=== PATIENT | male | born 1970 | race Caucasian/White ===

== ENCOUNTER → 2024-11-15 | Outpatient (CLI) | payer BC, SELFPAY ==
[2024-11-15 08:14] LABS: Collection Type, Urine Clean Catch; Squamous Epithelial Cell,Urine 0 /hpf (0-5)
[2024-11-15 08:54] LABS: Basophils # (Auto) 0.1 Thou/mm3 (0.0-0.2); Basophils % (Auto) 1 % (0-2.5); Eosinophils # (Auto) 0.3 Thou/mm3 (0.0-0.5); Eosinophils % (Auto) 4 % (0-10); Hematocrit 41.6 % (41.0-53.0); Hemoglobin 14.4 g/dL (13.5-16.0); Immature Granulocytes % (Auto) 0 % (0-0); Immature Granulocytes Auto 0.01 Thou/mm3 (0.00-0.00); Lymphocytes # (Auto) 2.2 Thou/mm3 (1.0-4.8); Lymphocytes % (Auto) 33 % (10-50); Mean Corpuscular HGB Conc 34.6 g/dl (31.0-37.0); Mean Corpuscular Hemoglobin 31.3 pg (25.0-35.0); Mean Corpuscular Volume 90 fL (80-100); Monocytes # (Auto) 0.6 Thou/mm3 (0.0-0.8); Monocytes % (Auto) 9 % (0-12); Neutrophils # (Auto) 3.4 Thou/mm3 (1.8-7.7); Neutrophils % (Auto) 52 % (37-80); Nucleated Red Blood Cell % 0 /100 WBC (0); Platelet Count 219 Thou/mm3 (140-440); RDW Standard Deviation 40.9 fL (35.1-43.9); White Blood Count 6.6 Thou/mm3 (3.8-10.6)
[2024-11-15 08:58] LABS: Glucose Estimated Average 111 mg/dL (80-131); Hemoglobin A1C 5.5 % Hgb (4.8-6.0)
[2024-11-15 09:03] LABS: Bilirubin,Urine Negative (Negative); Blood,Urine Trace (Negative); Clarity,Urine Clear (Clear/Hazy); Color,Urine Lt-Yellow (Lt Yel-Yel); Glucose, Urine Negative (Negative); Ketones,Urine Negative (Negative); Leukocyte Esterase,Urine Negative (Negative); Nitrite,Urine Negative (Negative); PH,Urine 6.5 (5.0-7.0); Protein,Urine Negative (Neg - Trace); RBC,Urine 1 /hpf (0-3); Specific Gravity,Urine 1.014 (1.001-1.035); Urobilinogen,Urine Negative mg/dL (0.0-1.0); WBC,Urine < 1 /hpf (0-5)
[2024-11-15 09:17] LABS: Alanine Aminotransferase 25 U/L (10-49); Albumin, Serum 4.7 gm/dL (3.5-5.0); Albumin/Globulin Ratio 2.1 (1.2-2.2); Alkaline Phosphatase 46 U/L (46-116); Anion Gap 7 (7-16); Aspartate Amino Transferase 30 U/L (0-34); BUN/Creatinine Ratio 11 Ratio (12-20); Bilirubin,Total 0.5 mg/dL (0.3-1.2); Blood Urea Nitrogen 10 mg/dL (9-23); Calcium 9.5 mg/dL (8.3-10.6); Calcium (Corrected) 9.5 mg/dL (8.5-10.1); Carbon Dioxide 29.2 mMol/L (20.0-31.0); Cardiac Risk Estimate 3.6 RATIO (4.0-6.7); Chloride 105 mMol/L (98-107); Cholesterol 136 mg/dL (132-200); Creatinine (Component) 0.9 mg/dL (0.6-1.3); Free T4 (Free Thyroxine) 1.04 ng/dL (0.89-1.76); Globulin 2.2 gm/dL (2.3-3.5); Glucose 99 mg/dL (74-106); HDL Cholesterol 38 mg/dL (40-60); LDL Cholesterol,Calculated 76 mg/dL (0-130); Osmolality,Calculated 280 (275-295); Potassium 4.5 mMol/L (3.4-5.1); Sodium 141 mMol/L (136-145); Total Protein 6.9 gm/dL (5.7-8.2); Triglycerides 109 mg/dL (30-150); Uric Acid 3.9 mg/dL (3.7-9.2); eGFR > 60 See Note
== END | disposition home or self-care (01) ==
LOC: COPL 07:19
PROVIDERS: PCP Family Medicine; Referring Provider Family Medicine; Visit Provider Family Medicine
DX: Z00.00 Encounter for general adult medical examination without abnormal findings (principal); I25.10 Atherosclerotic heart disease of native coronary artery without angina pectoris; E78.2 Mixed hyperlipidemia; I10 Essential (primary) hypertension; M10.00 Idiopathic gout, unspecified site
CPT/HCPCS: 36415; 80053; 80061; 81001; 83036; 84439; 84443; 84550; 85025

== ENCOUNTER 2024-11-23 15:14 | Emergency (ER) | payer BC, SELFPAY ==
[2024-11-23] VITALS (12 sets, daily range): BP systolic 117–179; BP diastolic 75–101; PULSE 64–83; RESP 12–25; TEMP 36.4–37; O2SAT 72–99; BMI 29.5
--- NOTE | 2024-11-23 15:28 | XR_ITS ---
Examination: Forearm, right, 2 views. Technique: Forearm, AP, lateral 2 views Date and time of exam: November 23, 2024 1649 hours INDICATIONS: Patient fell today with injury to the forearm, forearm pain. FINDINGS: Acute impacted comminuted fracture distal radial metaphysis, almost one shaft width dorsal displacement of the distal articulating surface of the radius The ulnar styloid tip also appears fractured No foreign body IMPRESSION: Acute comminuted displaced fracture distal radial metaphysis
--- NOTE | 2024-11-23 15:28 | XR_ITS ---
Examination: Wrist, right 3 views Technique: Wrist AP, oblique, lateral 3 views Date and time of exam: November 23, 2024 1641 hours INDICATION: Patient fell today with injury to the wrist, wrist pain FINDINGS: Acute comminuted fractured distal radial metaphysis Almost one shaft width dorsal displacement of the distal articulating fracture fragment of the radius Fracture ulnar styloid tip Carpal bones appear intact IMPRESSION: Acute comminuted displaced fracture distal radial metaphysis
--- NOTE | 2024-11-23 16:08 | PD.EDUPEX ---
Upper Extremity Injury RME/HPI General Chief Complaint: Extremity Injury, Upper Stated Complaint: DEFORMITY RIGHT ARM Time Seen by Provider: 11/23/24 15:33 Arrival date/time: 11/23/24 15:14 53-year-old male presents to the ED with a complaint of severe right wrist pain and deformity secondary to a ground-level fall. Patient states he was at home washing his dogs, the concrete was wet and slippery causing him to fall with his right hand behind him. He has some tingling to his fingertips however no overt numbness. Related Data Home Medications ?Medication ?Instructions ?Recorded ?Confirmed allopurinol 300 mg tablet 300 mg PO QDAY 09/26/19 11/26/24 tamsulosin 0.4 mg capsule 0.4 mg PO HS 11/30/20 11/26/24 aspirin 81 mg tablet,delayed 1 tab PO QDAY 12/29/21 11/26/24 release clopidogrel 75 mg tablet 75 mg PO QDAY 12/29/21 11/26/24 metoprolol succinate 25 mg 25 mg PO QPM 12/29/21 11/26/24 tablet,extended release 24 hr omeprazole 40 mg capsule,delayed 40 mg PO DAILY 04/14/22 11/26/24 release rosuvastatin 40 mg tablet 40 mg PO DAILY 08/26/23 11/26/24 tizanidine 4 mg tablet 4 mg PO 1XD 08/26/23 11/26/24 pregabalin 100 mg capsule (Lyrica) 100 mg PO BID 11/26/24 11/26/24 venlafaxine 150 mg 150 mg PO DAILY 11/26/24 11/26/24 capsule,extended release 24 hr Allergies Allergy/AdvReac Type Severity Reaction Status Date / Time No Known Allergies Allergy Verified 11/26/24 14:22 Review of Systems Review of Systems Systems Reviewed: All systems reviewed, normal except as documented Past Medical History Past Medical History NEUROLOGIC: Positive Brain Tumor; Negative Neurological Disorders or Seizures CARDIAC: Positive Cardiac Disorders, Myocardial Infarction, Cardiac Arrhythmia, Angina, Coronary Artery Disease, Atherosclerotic Heart Disease, Peripheral Vascular Disease, Hypercholesterolemia and Congestive Heart Failure; Negative Hypertension RESPIRATORY: Negative Chronic Obstructive Pulmonary Disease (COPD) or Asthma GASTROINTESTINAL: Positive Gastrointestinal Disorders, Gastrointestinal Bleed, Colitis and Gastroesophageal Reflux Disease; Negative Hepatitis GENITOURINARY: Positive Genitourinary Disorders and Benign Prostatic Hyperplasia; Negative Renal Disease MUSCULOSKELETAL: Positive Musculoskeletal Disorders and Arthritis; Negative Gout or Fibromyalgia ENDOCRINE: Positive Endocrine Disorders and Pituitary Disease; Negative Diabetes Mellitus Type 1 or Diabetes Mellitus Type 2 HEMATOLOGIC: Negative Blood Disorders or Sickle Cell Disease PSYCHO/SOCIAL: Positive Recreational Drug Use, Depression and Anxiety OTHER HISTORY: Positive Hospitalization, Falls, Blood Transfusions and Chicken Pox; Negative Autoimmune Disease, Down Syndrome, Developmental Delay, Shingles, Blood Transfusion Reaction, Anesthesia Reactions or Cancer Family History FAMILY HISTORY: Positive Family Cardiac Disorders and Family Surgery; Negative Family Psychiatric Problems, Family Respiratory Disorders, Family Gastrointestinal Problems, Family Cancer or Family Anesthesia Reaction Surgical History SURGICAL: Positive Cardiac Surgery, Coronary Artery Bypass Graft (2020 [facility]), Coronary Stent and Cardiac Catheterization; Negative Ear Surgery, Abdominal Surgery, Nephrectomy, Joint Replacement or Neurologic Surgery Social History SMOKING STATUS: Former smoker SUBSTANCE USE: marijuana ED Exam Narrative Physical exam: Alert and oriented 53-year-old male with a past medical history of coronary artery disease with history of CABG, GI bleed secondary to chronic alcoholism, with colitis and anemia, appears in moderate to severe distress secondary to pain in his right wrist and forearm. He is currently diaphoretic due to the pain. On exam he has no tenderness to the ulna however he has tenderness to the distal right radius with obvious deformity or possible dislocation noted. CMS is intact distally. Course Course Course Narrative: Morphine 10mg IM and Zofran 4mg PO given initially. Right Forearm X-ray: Acute comminuted displaced fracture distal radial metaphysis. Right Wrist X-ray: Acute comminuted displaced fracture distal radial metaphysis. Dilaudid 1mg IV, Toradol 30mg IV, and Zofran 4mg IV given. Consent for Conscious Sedation obtained. Conscious sedation performed for reduction and splinting with RT and Dr. Cheek present. Medications given: At 183: Fentanyl 100mcg and Versed.7.5mg IV. Medications given: At 1922: Fentanyl 100mcg IV Medication tiven: At 1958: Ketamine 150mg IV Splint applied, and sling placed. Post reduction Right Wrist X-ray: There remains impaction and significant posterior displacement of the main distal radial fracture fragment as depicted on the lateral view. Dilaudid 2mg PO given prior to discharge. Quality Measures none Orders Category Date Time Status Conscious Sedation [RT Stand By for Procedure] NOW Care 11/23/24 18:39 Completed Consent [Obtain Written Consent For:] .NOW Care 11/23/24 18:37 Completed sling [Splint / Immobilizer] STAT Care 11/23/24 15:32 Completed XR forearm RT 2V Stat Exams 11/23/24 15:28 Completed XR wrist RT 2V Stat Exams 11/23/24 22:44 Completed XR wrist comp RT min 3V Stat Exams 11/23/24 15:28 Completed HYDROmorphone INJ [Dilaudid Inj] Med 11/23/24 18:04 Discontinued 1 mg IVP X1 ONE Hydromorphone HCl [Dilaudid] Med 11/24/24 00:27 Discontinued 2 mg PO X1 ONE Ketamine Inj Med 11/23/24 19:59 Discontinued 150 mg IVP X1 ONE Ketorolac Inj [Toradol Inj] Med 11/23/24 18:04 Discontinued 30 mg IVP X1 ONE Midazolam Inj [Versed Inj] Med 11/23/24 18:37 Discontinued 7.5 mg IV X1 ONE Morphine Inj Med 11/23/24 15:30 Discontinued 10 mg IM X1 ONE Ondansetron Inj [Zofran Inj] Med 11/23/24 18:04 Discontinued 4 mg IV X1 ONE Ondansetron Odt [Zofran Odt] Med 11/23/24 15:30 Discontinued 4 mg PO X1 ONE fentaNYL INJ [Sublimaze Inj] Med 11/23/24 18:37 Discontinued 100 mcg IV X1 ONE fentaNYL INJ [Sublimaze Inj] Med 11/23/24 19:23 Discontinued 100 mcg IVP X1 ONE Vital Signs Vital signs: Vital Signs Temperature 97.5 F 11/23/24 15:40 Pulse Rate 64 11/23/24 15:40 Respiratory Rate 18 11/23/24 15:40 Blood Pressure 117/75 11/23/24 15:40 Pulse Oximetry (%) 96 11/23/24 15:40 Oxygen Delivery Method Room Air 11/23/24 15:40 Extremity Injury MDM Narrative MDM Narrative:: 53-year-old male presents to the ED with a complaint of severe right wrist pain and deformity secondary to a ground-level fall. Patient states he was at home washing his dogs, the concrete was wet and slippery causing him to fall with his right hand behind him. He has some tingling to his fingertips however no overt numbness. Alert and oriented 53-year-old male with a past medical history of coronary artery disease with history of CABG, GI bleed secondary to chronic alcoholism, with colitis and anemia, appears in moderate to severe distress secondary to pain in his right wrist and forearm. He is currently diaphoretic due to the pain. On exam he has no tenderness to the ulna however he has tenderness to the distal right radius with obvious deformity or possible dislocation noted. CMS is intact distally. Morphine 10mg IM and Zofran 4mg PO given initially. Right Forearm X-ray: Acute comminuted displaced fracture distal radial metaphysis. Right Wrist X-ray: Acute comminuted displaced fracture distal radial metaphysis. Dilaudid 1mg IV, Toradol 30mg IV, and Zofran 4mg IV given. Consent for Conscious Sedation obtained. Conscious sedation performed for reduction and splinting with RT and Dr. Cheek present. Medications given: At 183: Fentanyl 100mcg and Versed.7.5mg IV. Medications given: At 1922: Fentanyl 100mcg IV Medication tiven: At 1958: Ketamine 150mg IV Splint applied, and sling placed. Post reduction Right Wrist X-ray: There remains impaction and significant posterior displacement of the main distal radial fracture fragment as depicted on the lateral view. Dilaudid 2mg PO given prior to discharge. Patient was discharged home in stable and improved condition. Contact with Ortho Dr. Bhagat - Agrees to see patient in his office. Patient data External records reviewed:: None Clinical information provided by:: patient Social determinants that could affect healthcare access:: none Patient has the following chronic illnesses:: History of CAD, STEMI, CABG, Alcoholism, GI Bleeding, Colitis How is presenting disease/condition affected by chronic disease/condition?: uneffected by Evaluation data The following diagnostics were reviewed and interpreted by me:: radiology exam(s) Lab and/or radiology exams considered but not ordered:: N/A Interpretation Summary: As noted above. Medications / Prescriptions Medications or Prescriptions considered but not ordered:: N/A Medication administrations:: Medication Administration History Discontinued Medications Fentanyl Citrate (Fentanyl Cit Inj 50 Mcg/Ml Amp 2ml) 100 mcg IV X1 ONE Stop: 11/23/24 18:38 Last Admin: 11/23/24 23:11 Dose: Not Given Documented By: DT Non-Admin Reason: Cancelled by Provider Fentanyl Citrate (Fentanyl Cit Inj 50 Mcg/Ml Amp 2ml) 100 mcg IVP X1 ONE Stop: 11/23/24 19:24 Last Admin: 11/23/24 19:34 Dose: 100 mcg Documented By: VICKI Hydromorphone HCl (Hydromorphone Inj 2 Mg/Ml Vial) 1 mg IVP X1 ONE Stop: 11/23/24 18:05 Last Admin: 11/23/24 18:16 Dose: 1 mg Documented By: WILLARD Hydromorphone HCl (Hydromorphone Hcl 2 Mg Tablet) 2 mg PO X1 ONE Stop: 11/24/24 00:28 Last Admin: 11/24/24 00:41 Dose: 2 mg Documented By: VICKI Ketamine HCl (Ketamine 50 Mg/Ml Vial 10 Ml) 150 mg IVP X1 ONE Stop: 11/23/24 20:00 Last Admin: 11/23/24 22:41 Dose: 150 mg Documented By: VICKI Comments: performed by MD Cheek Ketorolac Tromethamine (Ketorolac Inj 30 Mg/Ml Vial) 30 mg IVP X1 ONE Stop: 11/23/24 18:05 Last Admin: 11/23/24 18:17 Dose: 30 mg Documented By: WILLARD Midazolam HCl (Midazolam Inj 1 Mg/Ml Vial 2 Ml) 7.5 mg IV X1 ONE Stop: 11/23/24 18:38 Last Admin: 11/23/24 22:41 Dose: 7.5 mg Documented By: VICKI Comments: performed by MD Cheek Morphine Sulfate (Morphine Sulf Inj 10 Mg/Ml Vial) 10 mg IM X1 ONE Stop: 11/23/24 15:31 Last Admin: 11/23/24 16:10 Dose: 10 mg Documented By: KAT Ondansetron HCl (Ondansetron Odt 4 Mg Tabrap) 4 mg PO X1 ONE; Protocol Stop: 11/23/24 15:31 Last Admin: 11/23/24 16:11 Dose: 4 mg Documented By: KAT Ondansetron HCl (Ondansetron Inj 2 Mg/Ml Inj 2 Ml) 4 mg IV X1 ONE; Protocol Stop: 11/23/24 18:05 Last Admin: 11/23/24 18:17 Dose: 4 mg Documented By: WILLARD As noted above. Consultations Consultation(s) initiated? (list below): Yes Consultation #1 (Physician, Specialty, Details): Dr. Bhagat Diagnosis Upper Extremity Injury Differential Diagnosis: sprain and strain of wrist, fracture of wrist, Colles' fracture and fracture of hand Most likely diagnosis given after review of the tests above:: Fracture of distal radius. Admission Indicated Admission indicated?: not indicated Explain why admission is indicated or not indicated:: Stable for discharge. Admission Request Was there a request for admission?: No Disposition Plan Disposition Plan: Discharge Discharge Attestation Discharge Attestation: The patient and all family members were given an opportunity to ask questions and understood the discharge instructions. Discharge instructions specifically effects, indications for sooner follow up or return to the emergency department, and the expected course of current diagnosis. Patient condition: Stable Discharge Plan Plan Patient Disposition: HOME (Self Care) Discharge Disposition comment: Stable and Improved Prescriptions/Referrals Prescriptions/Med Rec: No Action tamsulosin 0.4 mg capsule 0.4 mg PO HS clopidogrel 75 mg tablet 75 mg PO QDAY Patient Comments: TAKE 1 TABLET BY MOUTH EVERY DAY aspirin 81 mg tablet,delayed release (DR/EC) 1 tab PO QDAY Patient Comments: TAKE 1 TABLET BY MOUTH EVERY DAY metoprolol succinate 25 mg Tablet Extended Release 24 Hr 25 mg PO QPM allopurinol 300 mg Tablet 300 mg PO QDAY omeprazole 40 mg Capsule,Delayed Release(Dr/Ec) 40 mg PO DAILY tizanidine 4 mg tablet 4 mg PO 1XD Patient Comments: PLEASE SEE ATTACHED FOR DETAILED DIRECTIONS rosuvastatin 40 mg tablet 40 mg PO DAILY Patient Comments: TAKE 1 TABLET BY ORAL ROUTE NIGHTLY FOR HIGH CHOLESTEROL AND CAD pregabalin [Lyrica] 100 mg capsule 100 mg PO BID venlafaxine 150 mg capsule,extended release 24hr 150 mg PO DAILY Patient Comments: TAKE 1 CAPSULE BY MOUTH EVERY DAY Referrals: Zackery Hong MD [Primary Care Provider] - In 1 week Juan David Bhagat MD [Physician] - In 1 week (Dr. Bhagat has agreed to see you in his office on Monday. Please call his office on Monday morning to ask what time is the appointment.) Problem List Clinical Impression: Fracture of wrist Patient/Caregiver Discharge Instructions Education Materials: ED IV SEDATION Adult, ED Fracture, Wrist, General Additional Instructions: Ice and elevate the wrist to help alleviate pain and swelling. Do not remove the splint. Keep it dry. Follow-up with your primary care physician in 24 to 48 hours. Return to the ED for any new or worsening symptoms. Print Language: Eritrean Stand Alone Forms: [employer]rna Award Info., Patient Portal Info Letter PA/BACKUP SAWYER Supervising Physician PA/BACKUP SAWYER Supervising Physician: Dr. Cheek
[2024-11-23] MEDS: MORPHINE SULF INJ 10 MG/ML VIAL IM (16:10)
[2024-11-23] MEDS: ONDANSETRON ODT 4 MG TABRAP PO (16:11)
[2024-11-23] MEDS: HYDROmorphone INJ 2 MG/ML VIAL 1 MG IVP (18:16)
[2024-11-23] MEDS: KETOROLAC INJ 30 MG/ML VIAL IVP (18:17)
[2024-11-23] MEDS: ONDANSETRON INJ 2 MG/ML INJ 2 ML 4 MG IV (18:17)
[2024-11-23] MEDS: fentaNYL CIT INJ 50 mCg/ML AMP 2ML 100 MCG IVP (19:34)
[2024-11-23] MEDS: KETAMINE 50 MG/ML VIAL 10 ML 150 MG IVP (22:41)
[2024-11-23] MEDS: MIDAZOLAM INJ 1 MG/ML VIAL 2 ML 7.5 MG IV (22:41)
--- NOTE | 2024-11-23 22:44 | XR_ITS ---
Examination: Right wrist 2 views TECHNIQUE: AP right wrist 2 views Exam date and time: 02/23/2025 1055 hours Comparison November 23, 2024 1649 hours INDICATIONS: Acute comminuted fractures displaced distal radial metaphysis on examination November 23, 2024 1649 hours, post reduction films FINDINGS: There remains impaction and significant posterior displacement of the main distal radial fracture fragment as depicted on the lateral view IMPRESSION: There remains significant displacement of the comminuted fractures distal radial metaphysis
[2024-11-24] MEDS: HYDROMORPHONE HCL 2 MG TABLET PO (00:41)
[2024-11-24 00:43] VITALS: BP 175/85; PULSE 95; RESP 18; TEMP 36.9; O2SAT 95
== END 2024-11-24 00:46 | disposition home or self-care (01) ==
PROVIDERS: Emergency Provider Family Medicine; PCP Family Medicine
DX: S52.501A Unspecified fracture of the lower end of right radius, initial encounter for closed fracture (principal); S59.911A Unspecified injury of right forearm, initial encounter; W18.39XA Other fall on same level, initial encounter
CPT/HCPCS: 25605; 73090; 73100; 73110; 96374; 96375; 99285; J1171; J1885; J2250; J2270; J2405; J3010; Q0162; A9270

== ENCOUNTER → 2025-01-31 | Outpatient (CLI) | payer BC, SELFPAY ==
--- NOTE | 2025-01-31 09:10 | XR_ITS ---
Examination: Wrist, right 3 views Technique: Wrist AP, oblique, lateral 3 views Date and time of exam: January 31, 2025 0912 hours INDICATIONS: Acute comminuted displaced fractures distal radial metaphysis November 23, 2024, postop reduction internal fixation fractures FINDINGS: Significant partial healing comminuted intra-articular fractures distal radial metaphysis Satisfactory alignment Orthopedic hardware satisfactory position Ununited ulnar styloid tip fracture IMPRESSION: Significant partial healing comminuted intra-articular fractures distal radial metaphysis
== END | disposition home or self-care (01) ==
LOC: SDIM 09:02
PROVIDERS: PCP Family Medicine; Referring Provider Orthopaedic Surgery; Visit Provider Orthopaedic Surgery
DX: S52.571D Other intraarticular fracture of lower end of right radius, subsequent encounter for closed fracture with routine healing (principal); X58.XXXD Exposure to other specified factors, subsequent encounter
CPT/HCPCS: 73110

== ENCOUNTER → 2025-03-14 | Outpatient (CLI) | payer BC, SELFPAY ==
--- NOTE | 2025-03-14 09:33 | XR_ITS ---
Examination: Wrist, left 3 views Technique: Wrist AP, oblique, lateral 3 views Date and time of exam: March 14, 2025, 0942 hours INDICATIONS: Wrist fracture November 23, 2024 FINDINGS: Healed fracture distal radial metaphysis with stable and satisfactory alignment compared with January 31, 2025 Orthopedic hardware satisfactory position IMPRESSION: Healed fracture distal radius with stable and satisfactory alignment
== END | disposition home or self-care (01) ==
PROVIDERS: PCP Family Medicine; Referring Provider Orthopaedic Surgery; Visit Provider Orthopaedic Surgery
DX: Z87.81 Personal history of (healed) traumatic fracture (principal)
CPT/HCPCS: 73110

== ENCOUNTER → 2025-06-19 | Outpatient (CLI) | payer BC, SELFPAY ==
--- NOTE | 2025-06-19 09:35 | XR_ITS ---
Examination: Wrist, right 3 views Technique: Wrist AP, oblique, lateral 3 views Date and time of exam: June 19, 2025, 0933 hours, comparison October 12, 2024 INDICATIONS: Wrist fracture November 23, 2024 postop reduction internal fixation. FINDINGS: Healed fracture distal radial metaphysis, stable in satisfactory alignment Ununited ulnar styloid tip fracture Severe osteopenia IMPRESSION: Healed fracture distal radial metaphysis with satisfactory alignment
== END | disposition home or self-care (01) ==
PROVIDERS: PCP Family Medicine; Referring Provider Orthopaedic Surgery; Visit Provider Orthopaedic Surgery
DX: Z87.81 Personal history of (healed) traumatic fracture (principal); Z98.890 Other specified postprocedural states
CPT/HCPCS: 73110